=== PATIENT | female | born 1940 | race Caucasian/White ===

== ENCOUNTER → 2016-11-17 | Outpatient (CLI) | payer OTHER ==
[~2016-11-17] MED LIST: CALCIUM 600 +1 EAC8 PO; DILTIAZEM 24HR120 M2 PO; ELIQUIS5 MG PO; FIBER500 MG PO; FISH OIL 1,001000 M2 PO; FLECAINIDE ACET50 M1 PO; LIPITOR 20 MG T20 M1 PO
== END ==
LOC: NUC 08:25
DX: M85.80 Other specified disorders of bone density and structure, unspecified site (principal); R29.890 Loss of height

== ENCOUNTER → 2017-08-16 | Outpatient (CLI) | payer OTHER | LOC: ULTRA 10:40 | DX: M79.661 Pain in right lower leg (principal) ==

== ENCOUNTER → 2018-09-13 | Outpatient (CLI) | payer OTHER | LOC: ULTRA 10:00 | DX: I73.9 Peripheral vascular disease, unspecified (principal) ==

== ENCOUNTER 2019-09-04 09:05 | Emergency (ER) | payer OTHER ==
[~2019-09-04] VITALS: Ht 167.6 cm; Wt 72.6 kg
[2019-09-04 10:00] LABS: ABSOLUTE NEUTROPHILS 10.8 thou/uL (1.4-8.2); BASOPHILS 0.1 % (0.0-2.0); EOSINOPHILS 0.2 % (0.0-3.0); HEMATOCRIT 40.6 % (37.0-47.0); HEMOGLOBIN 13.7 gm/dL (12.0-15.0); LYMPHOCYTES 3.3 % (24.0-44.0); MCH 33.1 pg (26.0-34.0); MCHC 33.8 g/dL (28.0-37.0); MCV 98.1 fL (80.0-100.0); PLATELET COUNT 206 thou/uL (150-400); POLYS 91.4 % (36.0-66.0); RBC 4.14 mil/uL (4.20-5.00); RDW 13.2 % (10.5-14.5); WBC 11.8 thou/uL (4.0-11.0)
[2019-09-04 10:04] LABS: ANION GAP 6 mmol/L (7-16); BUN 14 mg/dL (7-18); CALCIUM 10.4 mg/dL (8.5-10.1); CHLORIDE 100 mmol/L (98-107); CO2 29 mmol/L (21-32); CREATININE 0.7 mg/dL (0.6-1.0); GLUCOSE 120 mg/dL (74-106); POTASSIUM 3.9 mmol/L (3.5-5.1); SODIUM 135 mmol/L (136-145)
[2019-09-04 10:15] LABS: ALBUMIN 3.2 g/dL (3.4-5.0); LIPASE 94 U/L (73-393); SGOT 1251 U/L (15-37); SGPT 925 U/L (30-65); TOTAL BILIRUBIN 0.9 mg/dL (0.2-1.0); TOTAL PROTEIN 6.6 g/dL (6.4-8.2); TROPONIN-I <0.06 ng/mL (<0.06)
[2019-09-04] MEDS ORDERED: PROBIOTIC1 EAC7 PO (10:58)
[2019-09-04] MEDS ORDERED: IRON159 MG PO (10:58)
--- NOTE | 2019-09-04 10:59 | EKG ---
[facility] [place] [address] ELECTROCARDIOGRAM REPORT Name: JAY GOLD Room #: REG [facility]#: [id number] Admission: 09/04/19 Attend Phys: Discharge: Date of : 36 Report #: [id number] THIS REPORT FOR: cc: Fransico Gomez MD, Neal A. MD Couchonnal, Luis F. MD ~ THIS REPORT FOR: //name// [facility] ED Test Date: 2019-09-04 Test Time: 09:29:48 Pat Name: JAY GOLD Department: Room: Gender: F Supervisor Metalizing: ESHEETS : 1940 Requested By: Sreekanth Clay Order Number: [id number] MD: Marco A Alicea Measurements Intervals [place] Rate: 69 P: 68 [place]: 183 QRS: 38 QRSD: 90 T: 23 QT: 400 QTc: 429 Interpretive Statements Sinus rhythm Compared to ECG 12/16/2015 08:48:48 No significant changes Electronically Signed On 09-04-2019 10:59:30 CDT by Marco A Alicea [email or web address] <ELECTRONICALLY SIGNED> By: Marco A Alicea MD 09/04/19 1059 Marco A Alicea MD /ENE
[2019-09-04 11:55] VITALS: BP 127/62
[2019-09-04 12:01] LABS: URINE BILIRUBIN NEGATIVE (Negative); URINE BLOOD 1+ (Negative); URINE CLARITY CLEAR; URINE COLOR YELLOW; URINE GLUCOSE-RANDOM* NEGATIVE (Negative); URINE KETONES NEGATIVE (Negative); URINE LEUKOCYTES-REFLEX NEGATIVE (Negative); URINE NITRITE-REFLEX NEGATIVE (Negative); URINE PROTEIN (DIPSTICK) NEGATIVE (Negative); URINE SPECIFIC GRAVITY <= 1.005 (1.005-1.035); URINE UROBILINOGEN 0.2 E.U./dl (0.2-1.0)
[2019-09-04 12:23] LABS: BACTERIA-REFLEX 1-9 Few /HPF (None Seen); CASTS None Seen /LPF (None Seen); CRYSTALS None Seen /LPF (None Seen); SQUAMOUS None Seen /LPF (0-3); URINE RBC 0-2 Rare /HPF (0-2); URINE WBC-REFLEX None Seen /HPF (0-5)
== END 2019-09-04 11:57 | disposition home or self-care (01) ==
LOC: ER 09:05
PROVIDERS: Emergency Medicine
DX: R19.7 Diarrhea, unspecified (principal); R10.13 Epigastric pain; R11.0 Nausea; I10 Essential (primary) hypertension; E78.00 Pure hypercholesterolemia, unspecified; I48.91 Unspecified atrial fibrillation; Z79.899 Other long term (current) drug therapy; Z91.048 Other nonmedicinal substance allergy status; Z88.2 Allergy status to sulfonamides

== ENCOUNTER 2019-10-14 19:13 | Emergency (ER) | payer OTHER ==
[~2019-10-14] VITALS: Ht 167.6 cm; Wt 71.2 kg
[~2019-10-14 19:13] MED LIST changes: -FLONASE 0.05%50 MCG NASAL
[2019-10-14 19:57] LABS: ABSOLUTE NEUTROPHILS 5.4 thou/uL (1.4-8.2); EOSINOPHILS 1.9 % (0.0-3.0); HEMATOCRIT 43.7 % (37.0-47.0); HEMOGLOBIN 14.9 gm/dL (12.0-15.0); LYMPHOCYTES 20.2 % (24.0-44.0); MCH 33.6 pg (26.0-34.0); MCHC 34.1 g/dL (28.0-37.0); MCV 98.7 fL (80.0-100.0); MONOCYTES 8.8 % (1.0-8.0); PLATELET COUNT 220 thou/uL (150-400); POLYS 68.1 % (36.0-66.0); RBC 4.43 mil/uL (4.20-5.00); RDW 13.5 % (10.5-14.5); WBC 7.9 thou/uL (4.0-11.0)
[2019-10-14 20:06] LABS: ANION GAP 11 mmol/L (7-16); BUN 24 mg/dL (7-18); CALCIUM 9.9 mg/dL (8.5-10.1); CHLORIDE 103 mmol/L (98-107); CO2 27 mmol/L (21-32); CREATININE 0.9 mg/dL (0.6-1.0); GLUCOSE 95 mg/dL (74-106); POTASSIUM 3.9 mmol/L (3.5-5.1); SODIUM 141 mmol/L (136-145)
[2019-10-14 20:16] LABS: ALBUMIN 3.9 g/dL (3.4-5.0); MAGNESIUM 2.2 mg/dL (1.8-2.4); SGOT 23 U/L (15-37); SGPT 27 U/L (30-65); TOTAL BILIRUBIN 0.3 mg/dL (0.2-1.0); TOTAL PROTEIN 7.4 g/dL (6.4-8.2); TROPONIN-I <0.06 ng/mL (<0.06)
[2019-10-14] MEDS ORDERED: FLONASE 0.05%50 MCG NASAL (20:22)
[2019-10-14 21:34] VITALS: BP 144/67
--- NOTE | 2019-10-16 08:12 | EKG ---
[facility] [place] [address] ELECTROCARDIOGRAM REPORT Name: JAY GOLD [facility] [id number] Admission: 10/14/19 Attend Phys: Discharge: 10/14/19 Date of : 36 Report #: [id number] THIS REPORT FOR: cc: Fransico Gomez MD, Neal A. MD Couchonnal, Luis F. MD ~ THIS REPORT FOR: //name// [facility] ED Test Date: 2019-10-14 Test Time: 19:18:04 Pat Name: JAY GOLD Department: Room: Gender: F Director Of Psychology: [place] : 1940 Requested By: Jed Duncan Order Number: [id number] MD: Marco A Alicea Measurements Intervals [place] Rate: 81 P: 58 [place]: 221 QRS: 44 QRSD: 98 T: -13 QT: 376 QTc: 437 Interpretive Statements Sinus rhythm Atrial premature complexes Borderline prolonged GA interval Left atrial enlargement Borderline T abnormalities, diffuse leads Compared to ECG 09/04/2019 09:29:48 Electronically Signed On 10-16-2019 8:11:56 CDT by Marco A Alicea [email or web address] <ELECTRONICALLY SIGNED> By: Marco A Alicea MD 10/16/19810 17 17 Marco A Alicea MD /EPI
== END 2019-10-14 21:36 | disposition home or self-care (01) ==
LOC: ER 19:13
PROVIDERS: Emergency Medicine
DX: R00.2 Palpitations (principal); R07.9 Chest pain, unspecified; I10 Essential (primary) hypertension; E78.00 Pure hypercholesterolemia, unspecified; I48.91 Unspecified atrial fibrillation; Z79.899 Other long term (current) drug therapy; Z88.2 Allergy status to sulfonamides; Z91.048 Other nonmedicinal substance allergy status

== ENCOUNTER → 2019-10-14 | Outpatient (CLI) | payer OTHER ==
[~2019-10-14] MED LIST changes: +FLONASE 0.05%50 MCG NASAL; +IRON159 MG PO; +PROBIOTIC1 EAC7 PO
== END ==
LOC: SJCVC 08:53
PROVIDERS: ATTEND Internal Medicine
DX: I48.0 Paroxysmal atrial fibrillation (principal); E78.5 Hyperlipidemia, unspecified; Z79.01 Long term (current) use of anticoagulants; Z79.899 Other long term (current) drug therapy; Z82.49 Family history of ischemic heart disease and other diseases of the circulatory system

== ENCOUNTER → 2019-10-20 | Outpatient (CLI) | payer OTHER ==
[~2019-10-20] MED LIST changes: +FLONASE 0.05%50 MCG NASAL
== END ==
LOC: SJCVCIMAG 08:09
PROVIDERS: ATTEND Internal Medicine
DX: I08.3 Combined rheumatic disorders of mitral, aortic and tricuspid valves (principal); I48.0 Paroxysmal atrial fibrillation; E78.5 Hyperlipidemia, unspecified; I27.20 Pulmonary hypertension, unspecified; Z79.899 Other long term (current) drug therapy; Z88.2 Allergy status to sulfonamides

== ENCOUNTER → 2020-11-08 | Outpatient (CLI) | payer OTHER | LOC: SJCVCIMAG 08:16 | PROVIDERS: ATTEND Internal Medicine | DX: I48.91 Unspecified atrial fibrillation (principal) ==

== ENCOUNTER → 2020-12-03 | Outpatient (CLI) | payer OTHER ==
[~2020-12-03] MED LIST changes: +GABAPENTIN100 MG PO; +METOPROLOL TART25 MG PO; +MULTI VITAMIN1 EACH PO; +OMEPRAZOLE 20 M20 M1 PO; +TYLENOL ARTHRI650 MG PO; +TYLENOL EXTRA500 MG PO
== END ==
LOC: LAB 09:53
PROVIDERS: ATTEND Student in an Organized Health Care Education/Training Program
DX: Z01.812 Encounter for preprocedural laboratory examination (principal); Z20.822 Contact with and (suspected) exposure to COVID-19

== ENCOUNTER → 2020-12-07 | Outpatient (CLI) | payer OTHER ==
[~2020-12-07] VITALS: Ht 167.6 cm; Wt 63.5 kg
--- NOTE | 2020-12-10 10:22 | PATH ---
[facility] [address] [place] [address] PATHOLOGY RPT PROCEDURE Name: JAY GOLD Room #: REG [facility].#: [id number] Admission: 12/07/20 Date of : 36 Discharge: Report #: [id number] Path Case #: [id number] [facility] Accession Number: [id number] . 01 Material submitted: . colon - RANDOM COLON BX . 01 Clinical history: . MICROSCOPIC COLITIS ABDOMINAL PAIN, RECTAL BLEED, CHANGE IN BOWEL HABITS DIVERTICULOSIS HEMORRHOIDS . 02 Diagnosis: Colonic mucosa, random colon, biopsy: - Colonic mucosa with no diagnostic abnormalities. - Negative for microscopic colitis. . (SCA:mml; 12/09/2020) QL 12/09/2020 1144 Local . 02 Electronically signed: . Vick Snow DO, Pathologist NPI- [id number] . 01 Gross description: . The specimen is received in formalin, labeled "brendon Galindo colon biopsy". Received are four segments of pale harkins tissue ranging in size from 0.2-0.3 cm in maximum dimensions. The specimen is submitted entirely in cassette A1. (CAA; 12/08/2020) QA/[facility] 12/08/2020 0944 Local . 02 Pathologist provided ICD-10: R10.9, K62.5, R19.4, K57.90, K64.9 . 02 CPT . 415198 Specimen Comment: A courtesy copy of this report has been sent to [phone] Specimen Comment: [id number] Specimen Comment: Report sent to / DR KIRBY Specimen Comment: A duplicate report has been generated due to demographic updates. Performed at: [facility] [address] [place] [address] [id number] MD Trevor Springer MD Phone: [phone] [address] [address] PATHOLOGY RPT PROCEDURE Name: JAY GOLD Room #: REG [facility]#: [id number] Admission: 12/07/20 Date of : 36 Discharge: Report #: [id number] Path Case #: [id number] Performed at: 02 [facility] [address] [id number] MD Sae Bowden MD Phone: [phone]
== END | disposition home or self-care (01) ==
LOC: GI 07:51
PROVIDERS: ATTEND Internal Medicine
DX: Z12.11 Encounter for screening for malignant neoplasm of colon (principal); R19.4 Change in bowel habit; R19.7 Diarrhea, unspecified; K57.30 Diverticulosis of large intestine without perforation or abscess without bleeding; K64.8 Other hemorrhoids; K64.4 Residual hemorrhoidal skin tags; R10.13 Epigastric pain; R14.0 Abdominal distension (gaseous); T18.2XXA Foreign body in stomach, initial encounter; I10 Essential (primary) hypertension; E78.00 Pure hypercholesterolemia, unspecified; I48.91 Unspecified atrial fibrillation; K21.9 Gastro-esophageal reflux disease without esophagitis; Z98.890 Other specified postprocedural states; Z79.899 Other long term (current) drug therapy; Z88.2 Allergy status to sulfonamides; Y83.8 Other surgical procedures as the cause of abnormal reaction of the patient, or of later complication, without mention of misadventure at the time of the procedure
CPT/HCPCS: 62110; 62900

== ENCOUNTER → 2020-12-22 | Outpatient (CLI) | payer OTHER | LOC: NUC 09:17 | PROVIDERS: ATTEND Internal Medicine | DX: T18.118A Gastric contents in esophagus causing other injury, initial encounter (principal); R11.0 Nausea; K31.84 Gastroparesis; X58.XXXA Exposure to other specified factors, initial encounter; Y92.89 Other specified places as the place of occurrence of the external cause; Y93.89 Activity, other specified; Y99.8 Other external cause status ==